=== PATIENT | female | born 1975 | race Hispanic/Latino ===

== ENCOUNTER 2020-07-21 09:08 | Emergency (ER) | payer SELFPAY ==
[2020-07-21] MEDS ORDERED: Aspirin Chewable 81 MG TAB ONE (09:27)
[2020-07-21] MEDS ORDERED: Nitroglycerin 0.4 MG TAB 1 EACH ONE (09:27)
[2020-07-21 09:57] LABS: #Basophils 0.1 thou/uL (0.0-0.2); #Lymphocytes 1.3 thou/uL (1.20-3.40); #Monocytes 0.5 thou/uL (0.11-0.59); #Neutrophils 5.6 thou/uL (1.40-6.50); %Basophils 1.3 % (0.0-1.0); %Eosinophils 0.5 % (0.0-10.0); %Lymphocytes 17.7 % (21.0-51.0); %Monocytes 6.3 % (0.0-10.0); %Neutrophils 74.2 % (42.0-75.0); Hemoglobin 13.7 g/dL (12.0-16.0); Mean Corpuscular HGB CONC 32.3 g/dL (32.0-36.0); Mean Corpuscular Hemoglobin 30.1 pg (27.0-31.0); Mean Corpuscular Volume 93.1 fL (78.0-98.0); Mean Platelet Volume 7.8 fL (7.4-10.4); Platelet Count 258 thou/uL (130-400); Red Blood Cell (RBC) Count 4.56 mill/uL (4.20-5.40); White Blood Cell (WBC) Count 7.5 thou/uL (4.8-10.8)
[2020-07-21 10:06] LABS: ALT (SGPT) 23 U/L (8-55); AST (SGOT) 18 U/L (5-34); Albumin 4.2 g/dL (3.5-5.0); Alkaline Phosphatase 66 U/L (40-110); Anion Gap 12 mmol/L (10-20); BUN (Urea Nitrogen) 16 mg/dL (7.0-18.7); Bilirubin, Total 0.5 mg/dL (0.2-1.2); Calc. Creatinine Clearance 0 mL/min (70-130); Calcium 8.7 mg/dL (7.8-10.44); Carbon Dioxide 25 mmol/L (22-29); Chloride 103 mmol/L (98-107); Estimated GFR-MDRD 78; Globulin 2.7 g/dL (2.4-3.5); Glucose 123 mg/dL (70-105); Protein, Total 6.9 g/dL (6.0-8.3); Sodium 136 mmol/L (136-145)
--- NOTE | 2020-07-21 10:06 | RAD ---
PORTABLE CHEST: Date: 07/21/2020 HISTORY: Chest pain. FINDINGS: Lung acuna are clear. No infiltrate or vascular congestion. Heart and mediastinum unremarkable. IMPRESSION: No acute process. POS: [facility]
[2020-07-21] MEDS ORDERED: Lidocaine Viscous Sol 2% 15 ml UD Cup ONE (10:33)
[2020-07-21] MEDS ORDERED: Mag-Al Plus 1200 MG/1200 MG/120 MG/30 ML UDCUP ONE (10:33)
[2020-07-21] MEDS ORDERED: Ketorolac Tromethamine 30 MG/ML VIAL ONE (11:45)
[2020-07-21] MEDS ORDERED: Enoxaparin Sodium 80 MG/0.8 ML SYRINGE ONE (13:24)
[2020-07-21 13:25] LABS: CKMB 0.9 ng/mL (0-6.6)
== END 2020-07-21 14:22 | disposition short-term general hospital (02) ==
LOC: MADERS 09:08
DX: I21.4 Non-ST elevation (NSTEMI) myocardial infarction (principal)
CPT/HCPCS: 36416; 71045; 80053; 82553; 83880; 84484; 85025; 93005; 96372; 96374; J1650; J1885

== ENCOUNTER 2020-07-31 10:58 | Emergency (ER) | payer SELFPAY ==
[~2020-07-31 10:58] MED LIST: Iopamidol 370 76% 125 ML VIAL FS ONE
[2020-07-31] MEDS ORDERED: Nitroglycerin 0.4 MG TAB 1 EACH ONE (11:03)
[2020-07-31] MEDS ORDERED: Aspirin Chewable 81 MG TAB ONE (11:03)
--- NOTE | 2020-07-31 11:44 | RAD ---
PORTABLE CHEST: Date: 07/31/2020 HISTORY: Chest pain. COMPARISON: 07/21/2020. FINDINGS: Poor inspiration. Lungs appear clear with no evidence of infiltrate. Heart and mediastinum unremarkab le and vasculature within normal range. IMPRESSION: No acute process. POS: [facility]
[2020-07-31 11:50] LABS: %Neutrophils 58.2 % (42.0-75.0); Hemoglobin 13.6 g/dL (12.0-16.0); Mean Corpuscular HGB CONC 32.9 g/dL (32.0-36.0); Mean Corpuscular Hemoglobin 30.3 pg (27.0-31.0); Mean Platelet Volume 7.4 fL (7.4-10.4); Platelet Count 299 thou/uL (130-400); RBC Distribution Width 11.1 % (11.5-14.5); Red Blood Cell (RBC) Count 4.49 mill/uL (4.20-5.40); White Blood Cell (WBC) Count 10.9 thou/uL (4.8-10.8)
[2020-07-31 11:51] LABS: #Basophils 0.1 thou/uL (0.0-0.2); #Eosinphils 0.1 thou/uL (0.0-0.7); #Lymphocytes 3.6 thou/uL (1.20-3.40); #Monocytes 0.8 thou/uL (0.11-0.59); #Neutrophils 6.4 thou/uL (1.40-6.50); %Basophils 1.2 % (0.0-1.0); %Eosinophils 0.6 % (0.0-10.0); %Lymphocytes 33.1 % (21.0-51.0)
[2020-07-31 12:44] LABS: ALT (SGPT) 63 U/L (8-55); AST (SGOT) 22 U/L (5-34); Albumin 4.3 g/dL (3.5-5.0); Alkaline Phosphatase 74 U/L (40-110); Anion Gap 16 mmol/L (10-20); BUN (Urea Nitrogen) 16 mg/dL (7.0-18.7); Bilirubin, Total 0.6 mg/dL (0.2-1.2); CK (CPK) 92 U/L (29-168); Calc. Creatinine Clearance 0 mL/min (70-130); Carbon Dioxide 19 mmol/L (22-29); Chloride 108 mmol/L (98-107); Estimated GFR-MDRD 79; Globulin 3.1 g/dL (2.4-3.5); Glucose 112 mg/dL (70-105); Potassium 3.3 mmol/L (3.5-5.1); Protein, Total 7.4 g/dL (6.0-8.3); Sodium 140 mmol/L (136-145)
[2020-07-31 13:03] LABS: CKMB 0.6 ng/mL (0-6.6)
--- NOTE | 2020-07-31 15:14 | CT ---
CT ANGIO OF CHEST PERFORMED WITH INTRAVENOUS CONTRAST ENHANCMENT WITH 3D RECONSTRUCTIONS: 07/31/20 HISTORY: Chest pain. The lungs show slight mosaic lung patterns probably on the basis of some mild air trapping. I do not see any definite ground glass infiltrative change. There is some gravity dependent atelectasis in the lung bases. No significant mediastinal or hilar adenopathy noted. The thoracic aorta is normal in caliber. There is fairly good pulmonary artery opacification obtained . There is no CT evidence for pulmonary embolus. The visualized liver parenchyma shows no focal findings. Right and left adrenal glands are normal. IMPRESSION: No CT evidence for pulmonary embolus. POS: [facility]
[2020-07-31] MEDS ORDERED: Potassium Chloride 20 MEQ TAB ONE (15:35)
[2020-07-31] MEDS ORDERED: HYDROcodone/Acetaminophen 10/325 mg Tablet ONE (15:35)
[2020-07-31 15:44] LABS: CKMB 0.7 ng/mL (0-6.6)
[2020-07-31] MEDS ORDERED: Enoxaparin Sodium 100 MG/ML SYRINGE ONE (16:00)
[2020-07-31] MEDS ORDERED: Acetaminophen 325 MG TAB PO PRN (19:14)
[2020-07-31] MEDS ORDERED: Ondansetron ODT 4 MG TAB SL PRN (19:14)
[2020-07-31] MEDS ORDERED: Ondansetron PF 4 MG/2 ML Vial IVP PRN (19:14)
[2020-07-31] MEDS ORDERED: Carvedilol 6.25 MG TAB PO SCH (21:00)
[2020-07-31] MEDS ORDERED: Atorvastatin Calcium 40 MG TAB PO SCH (21:00)
== END 2020-07-31 18:00 | disposition short-term general hospital (02) ==
LOC: MADERS 10:58
DX: I20.0 Unstable angina (principal)
CPT/HCPCS: 36415; 71045; 71275; 80053; 82550; 82553; 83880; 84484; 85025; 85379; 86140; 93005; 94760; 96372; J1650; Q9967